=== PATIENT | male | born 2000 | race Two or more races ===

== ENCOUNTER 2023-09-24 08:34 | Emergency (ER) | payer MEDICAID ==
[~2023-09-24] VITALS: Ht 175.3 cm; Wt 89.6 kg
[2023-09-24] MEDS ORDERED: IBUPROFEN 600 MG TABLET PO ONE (09:00)
[2023-09-24] MEDS ORDERED: ACETAMINOPHEN 500 MG TABLET PO ONE (09:00)
[2023-09-24] MEDS ORDERED: IBUP-1492 PO (09:44)
[2023-09-24] MEDS ORDERED: ACET-3385 PO (09:44)
[2023-09-24 09:45] VITALS: BP 119/79; PULSE 89; RESP 16; TEMP 98.3
== END 2023-09-24 10:16 | disposition home or self-care (01) ==
LOC: EMS 08:35
DX: S93.402A Sprain of unspecified ligament of left ankle, initial encounter (principal); I10 Essential (primary) hypertension; X58.XXXA Exposure to other specified factors, initial encounter; Y93.89 Activity, other specified; Y92.89 Other specified places as the place of occurrence of the external cause; Y99.8 Other external cause status
CPT/HCPCS: 99284